=== PATIENT | male | born 1975 | race Two or more races ===

== ENCOUNTER 2024-11-16 10:30 | Emergency (ER) | payer OTHER ==
[~2024-11-16] VITALS: Ht 188 cm; Wt 89.8 kg
[2024-11-16 10:54] VITALS: BP 129/79; O2SAT 97
[2024-11-16] MEDS ORDERED: TRIAMCINOLONE ACETONIDE 40 MG/ML VIAL IM ONE (11:15)
[2024-11-16] MEDS ORDERED: KETOROLAC TROMETHAMINE 60 MG VIAL IM ONE ×2 (11:15→11:18)
[2024-11-16] MEDS ORDERED: TRIAMCINOLONE ACETONIDE 40 MG/ML VIAL ONE (11:18)
== END 2024-11-16 13:08 | disposition home or self-care (01) ==
LOC: ER 10:33
DX: S90.32XA Contusion of left foot, initial encounter (principal); X58.XXXA Exposure to other specified factors, initial encounter; Y93.69 Activity, other involving other sports and athletics played as a team or group; Y92.832 Beach as the place of occurrence of the external cause; Y99.9 Unspecified external cause status